=== PATIENT | female | born 1970 | race African-American/Black ===

== ENCOUNTER 2020-10-27 07:18 | Inpatient (IN) | payer MEDICAID, OTHER ==
[~2020-10-27] VITALS: Ht 162.6 cm; Wt 90.5 kg
[2020-10-27] MEDS ORDERED: DIVA-85 PO (08:10)
[2020-10-27] MEDS ORDERED: ARIP2TAB27 PO (08:10)
[2020-10-27 08:14] LABS: COVID AG,FIA SOURCE NASOPHARYNGEAL
[2020-10-27 08:21] LABS: BASOPHILS % (AUTO) 0.4 % (0.0-2.0); EOSINOPHILS % (AUTO) 1.1 % (1.0-6.0); HEMATOCRIT 34.5 % (36-46); HEMOGLOBIN 11.6 g/dL (12.0-16.0); MEAN CORPUSCULAR HEMOGLOBIN 29.4 pg (26.0-34.0); MEAN CORPUSCULAR HGB CONC 33.6 G/dL (31.0-37.0); MEAN CORPUSCULAR VOLUME 88 fL (80-100); MONOCYTES # (AUTO) 0.6 K/uL (0.1-1.0); MONOCYTES % (AUTO) 8.1 % (2.0-9.0); NEUTROPHILS # (AUTO) 4.3 K/uL (1.8-7.7); NEUTROPHILS % (AUTO) 61.4 % (40.0-70.0); PLATELET COUNT (AUTO) 286 K/uL (150-450); RED BLOOD CELL COUNT(AUTO) 3.94 MIL/uL (4.00-5.20); RED CELL DISTRIBUTION WIDTH 14.6 % (11.5-14.5)
[2020-10-27 08:22] LABS: ANION GAP 8 mmol/L (8-16); CALCIUM, TOTAL 8.7 mg/dL (8.8-10.5); CARBON DIOXIDE 26 mmol/L (22-29); CHLORIDE 103 mmol/L (98-107); CREATININE 1.22 mg/dL (0.60-1.30); GLOMERULAR FILTR. RATE CALC 57 mL/min (>60); GLUCOSE,RANDOM 95 mg/dL (70-110); POTASSIUM 3.2 mmol/L (3.5-5.1); SODIUM SERUM 137 mmol/L (136-145); UREA NITROGEN, BLOOD 14 mg/dL (7-18)
[2020-10-27 08:34] LABS: ALANINE AMINOTRANSFERASE 30 U/L (12-78); ALBUMIN 4.1 g/dL (3.4-5.0); ALKALINE PHOSPHATASE 67 U/L (46-116); ASPARTATE AMINOTRANSFERASE 36 U/L (15-37); BILIRUBIN,TOTAL 0.9 mg/dL (0.1-1.0); HCG,QUANTITATIVE < 1 mIU/mL (0-6); TOTAL PROTEIN, SERUM 8.1 g/dL (6.4-8.2)
[2020-10-27] MEDS ORDERED: DIVALPROEX SODIUM 500 MG ER TABLET PO ONE (08:45)
[2020-10-27] MEDS ORDERED: POTASSIUM CHLORIDE 10% 40 MEQ/30 ML LIQUID UDCUP PO ONE (08:45)
[2020-10-27] MEDS ORDERED: ARIPiprazole 5 MG TABLET PO ONE (08:45)
[2020-10-27] MEDS ORDERED: ZOLPIDEM TARTRATE 10 MG TABLET PO PRN (09:30)
[2020-10-27] MEDS ORDERED: HALOPERIDOL 5 MG TABLET PO PRN (09:30)
[2020-10-27 11:25] VITALS: BP 153/126
[2020-10-27] MEDS ORDERED: DOCUSATE SODIUM 100 MG CAPSULE PO PRN (15:45)
[2020-10-27] MEDS ORDERED: MAG HYDROX/AL HYDROX/SIMETH ES 30 ML SUSPENSION UDCUP PO PRN (15:45)
[2020-10-27] MEDS ORDERED: GuaiFENesin/D-METHORPHAN [SUGAR-FREE] 200-20MG/10 ML SYRUP UDCUP PO PRN (15:45)
[2020-10-27] MEDS ORDERED: IBUPROFEN 400 MG TABLET PO PRN (15:45)
[2020-10-27] MEDS ORDERED: ALBUTEROL SULFATE HFA 90 MCG/PUFF 8 GM INHALER IH PRN (15:45)
[2020-10-27] MEDS ORDERED: LOPERAMIDE HCL 2 MG CAPSULE PO PRN (15:45)
[2020-10-27] MEDS ORDERED: NICOTINE 14 MG/24 HOUR PATCH TD PRN (15:45)
[2020-10-27] MEDS ORDERED: CloNIDine HCL 0.1 MG TABLET PO PRN (15:45)
[2020-10-27] MEDS ORDERED: ONDANSETRON HCL 4 MG TABLET PO PRN (15:45)
[2020-10-27] MEDS ORDERED: ACETAMINOPHEN 325 MG TABLET PO PRN (15:45)
[2020-10-27] MEDS ORDERED: PETROLATUM,WHITE 28 GM JELLY TP PRN (15:45)
[2020-10-27] MEDS ORDERED: MAGNESIUM HYDROXIDE SUSPENSION 30 ML UDCUP PO PRN (15:45)
[2020-10-27] MEDS: DIVALPROEX SODIUM 500 MG ER TABLET PO SCH (16:12)
[2020-10-27 17:11] VITALS: BP 115/63
[2020-10-27] MEDS: LORazepam 2 MG TABLET PO PRN (17:55)
[2020-10-28 09:16] VITALS: BP 118/69
[2020-10-28] MEDS: ARIPiprazole 5 MG TABLET PO SCH (10:05)
[2020-10-28] MEDS: AmLODIPine BESYLATE 2.5 MG TABLET PO SCH (10:05)
[2020-10-28] MEDS: DIVALPROEX SODIUM 500 MG ER TABLET PO SCH ×2 (10:05→16:15)
[2020-10-28] MEDS: BENZOCAINE/MENTHOL LOZENGE PO PRN (14:22)
[2020-10-28 16:00] VITALS: BP 156/92
[2020-10-29] MEDS: AmLODIPine BESYLATE 2.5 MG TABLET PO SCH (08:40)
[2020-10-29] MEDS: DIVALPROEX SODIUM 500 MG ER TABLET PO SCH ×2 (08:40→16:44)
[2020-10-29] MEDS: ARIPiprazole 5 MG TABLET PO SCH (08:41)
[2020-10-29 10:11] VITALS: BP 171/105
[2020-10-29 11:11] VITALS: BP 126/42
[2020-10-29 16:00] VITALS: BP 140/94
[2020-10-30] MEDS: AmLODIPine BESYLATE 2.5 MG TABLET PO SCH (09:05)
[2020-10-30] MEDS: ARIPiprazole 5 MG TABLET PO SCH (09:05)
[2020-10-30] MEDS: BENZOCAINE/MENTHOL LOZENGE PO PRN (09:05)
[2020-10-30] MEDS: DIVALPROEX SODIUM 500 MG ER TABLET PO SCH ×2 (09:05→17:16)
[2020-10-30 16:26] VITALS: BP 152/96
[2020-10-31] MEDS: LORazepam 2 MG TABLET PO PRN (00:34)
[2020-10-31 05:31] VITALS: BP 166/93
[2020-10-31] MEDS: DIVALPROEX SODIUM 500 MG ER TABLET PO SCH (08:04)
[2020-10-31] MEDS: ARIPiprazole 5 MG TABLET PO SCH (08:04)
[2020-10-31] MEDS: AmLODIPine BESYLATE 2.5 MG TABLET PO SCH (08:04)
[2020-10-31 08:45] VITALS: BP 144/70
[2020-10-31] MEDS ORDERED: AMLO2.5T96 PO (13:23)
[2020-10-31] MEDS ORDERED: DIVA-80 PO (13:23)
[2020-10-31] MEDS ORDERED: ARIP5TAB37 PO (13:23)
== END 2020-10-31 14:00 | disposition home or self-care (01) | DRG 750 ==
LOC: EMS 07:33 → 3EI 11:27
PROVIDERS: ADMIT Psychiatry & Neurology Psychiatry; ATTEND Psychiatry & Neurology Psychiatry
DX: F25.1 Schizoaffective disorder, depressive type (principal); R45.851 Suicidal ideations; Z59.0 Homelessness; D64.9 Anemia, unspecified; E87.6 Hypokalemia; M10.9 Gout, unspecified; F15.90 Other stimulant use, unspecified, uncomplicated; I10 Essential (primary) hypertension; J45.909 Unspecified asthma, uncomplicated; Z20.822 Contact with and (suspected) exposure to COVID-19; Z79.899 Other long term (current) drug therapy; Z87.891 Personal history of nicotine dependence; Z91.14 Patient's other noncompliance with medication regimen
CPT/HCPCS: 80053; 84132; 84702; 85025; 87426; 99285; G0480; Q0162